=== PATIENT | female | born 1950 | race Caucasian/White ===

== ENCOUNTER 2024-01-12 12:32 | Day surgery (SDC) | payer MEDICARE ==
[2024-01-12] MEDS ORDERED: BUPIVACAINE 0.5% VIAL IJ ONE (12:33)
[2024-01-12] MEDS ORDERED: Depo-Medrol 40 MG/ML IM ONE (12:33)
[2024-01-12] MEDS ORDERED: Lactated Ringers 1,000 ML IV ONE (14:09)
[2024-01-12] MEDS ORDERED: DIPRIVAN 200 MG/20 ML IV ONE (14:25)
--- NOTE | 2024-01-12 14:58 | XRAY ---
Indication: Right hip injection. Intraoperative fluoroscopy provided for 11 seconds. Single digital spot images submitted for interpretation demonstrates needle tip projecting lateral to right femur neck. Small amount of contrast injected for needle tip placement. Correlate with intraoperative findings/report.
--- NOTE | 2024-01-12 15:24 | XRAY ---
11 seconds of fluoroscopy was used in surgery for a right intra-articular hip injection.
== END 2024-01-12 14:50 | disposition home or self-care (01) ==
LOC: SDC-PAIN 12:32
PROVIDERS: ATTEND Psychiatry & Neurology Pain Medicine
DX: M16.11 Unilateral primary osteoarthritis, right hip (principal)
CPT/HCPCS: 20610; 73501; 77002; J1010; J2704; Q9966